=== PATIENT | male | born 1990 | race Caucasian/White ===

== ENCOUNTER 2023-10-22 14:14 | Outpatient (AMB) | payer OTHER, SELFPAY ==
--- NOTE | 2023-10-22 14:24 | A.OFFVIS_ITS ---
Vital Signs 10/22/23 14:31 Height 5 ft 8 in Weight 172 lb BMI 26.1 BP 124/66 Blood Pressure Location Lt brachial Position Sitting Pulse 88 Intake Visit Reasons: cholecystitis Intake Note: Patient is seen in office for evaluation and treatment of cholecystitis. 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 He reports multiple foods produce the nausea and vomiting especially acid foods. The pain is mainly in the epigastrium and right upper quadrant. He is surviving basically on bread and water. He has been on anti acid medications without significant improvement in his symptoms. He reports normal bowel movements without bleeding. Workup with ultrasound of the abdomen revealed multiple gallstones within the gall bladder. Patient presents to discuss cholecystectomy. [facility] Surgical History Hx of appendectomy Social History Alcohol intake: never Patient Tobacco Use Status: Former Tobacco user Review of Systems Const All systems reviewed & are unremarkable except as noted in HPI and below GI Reports abdominal pain, Reports nausea and Reports vomiting Physical Exam Vital Signs: Last Vital Signs Pulse 88 10/22/23 14:31 BP 124/66 10/22/23 14:31 BMI result Body Mass Index 26.1 Const General: cooperative and no acute distress Nutritional Appearance: well nourished Orientation/consciousness: patient oriented x3 Limitations: no limitations HEENT Head: Yes normocephalic and Yes atraumatic Ears: hearing grossly normal bilaterally Resp Effort & Inspection: normal respiratory effort, no audible wheezes, no cough and no respiratory distress Cardio Jugular venous distension: no JVD GI Inspection: Yes normal to inspection Palpation (GI): Soft to palpation and Tenderness to palpation present (GI) in the epigastrum, in the RUQ and Macias's sign positive Percussion: Yes normal to percussion Auscultation: normal bowel sounds Skin Other: Warm, dry, no rash Neuro General: patient oriented x3 Extrem General: Yes no clubbing, cyanosis or edema Assessment & Plan Assessment & Plan (1) Cholecystitis, acute with cholelithiasis: Code(s): K80.00 - Calculus of gallbladder with acute cholecystitis without obstruction Category: Medical Qualifiers: Biliary obstruction: without biliary obstruction Qualified Code(s): K80.00 - Calculus of gallbladder with acute cholecystitis without obstruction Plan 33-year-old male patient presenting with complaints of abdominal pain in the right upper quadrant and epigastrium with associated nausea and vomiting. Patient has difficulty eating multiple foods and feels he is losing weight because of this. Anti ulcer treatments have not helped his symptoms. He presents today to discuss laparoscopic or possible open cholecystectomy. Review of an ultrasound of the abdomen revealed multiple gallstones within the gallbladder. It is difficult to know if cholecystectomy will relieve all his symptoms given his complex history. His gallbladder clearly is abnormal and may help to some degree. I reviewed the risks, alternatives and benefits of laparoscopic cholecystectomy and he was subsequently consented to a laparoscopic or possible open cholecystectomy. He will be scheduled at his earliest convenience. Coding Level of Care Code New Pt Level 4 (77148) Diagnoses Calculus of gallbladder with acute cholecystitis without obstruction K80.00 Biliary obstruction: without biliary obstruction
[2023-10-22 14:31] VITALS: BP 124/66; PULSE 88; BMI 26.1
== END 2023-10-22 15:26 | disposition home or self-care (01) ==
PROVIDERS: PCP Internal Medicine; Visit Provider Surgery
DX: K80.00 Calculus of gallbladder with acute cholecystitis without obstruction (principal)
CPT/HCPCS: 99204

== ENCOUNTER → 2023-10-22 14:14 | Outpatient (BNVA) | payer OTHER, SELFPAY | PROVIDERS: PCP Internal Medicine; Visit Provider Surgery | DX: K80.00 Calculus of gallbladder with acute cholecystitis without obstruction (principal) | CPT/HCPCS: 99202 ==

== ENCOUNTER 2023-11-06 10:50 | Day surgery (SDC) | payer OTHER, SELFPAY ==
[2023-11-06] VITALS (8 sets, daily range): BP systolic 118–147; BP diastolic 64–86; PULSE 67–86; RESP 12–18; TEMP 36.4–36.6; O2SAT 95–100; BMI 25.7
[2023-11-06] MEDS: Lactated Ringers 1,000 ML 100 ML IVCONT (11:57)
--- NOTE | 2023-11-06 12:41 | MHC.SHP ---
Pre-Procedural Eval Section A - 24 Hr Update-Section A only Date of Service: 11/06/23 The patient is an INPATIENT: No Changes since office visit: Yes Patient answered all questions; No Cold of Flu in the past 2 weeks, No New Medical Problems and No Changes in Medication The patient has been examined within 24 hours of the surgical procedure. The History & Physical has been completed within 30 days and I have reviewed it.: Yes Section B - Complete if H&P > 30 days Chief Complaint: Calculus of gallbladder with acute cholecystitis Allergies: Allergies Allergy/AdvReac Type Severity Reaction Status Date / Time No Known Allergies Allergy Verified 11/05/23 10:04 Plan Diagnosis/Plan: Unchanged I have reviewed the history and physical and performed a pertinent physical examination on my patient. No changes have occurred unless specified. Time Spent With Patient Time: Total time managing care of this patient today ____ minutes.
--- NOTE | 2023-11-06 14:03 | HO.ANESPROP2 ---
HPI - Anesthesia Eval Consult details Narrative: 33yo male patient for Laparoscopic Cholecystectomy, possible open PMFSH Active Problems Active Problems: All Active Problems (Updated 10/22/23 @ 15:02 by Daniel Norwood MD) Cholecystitis, acute with cholelithiasis (Acute) Family History Family history of problems with anesthesia: No Surgical History Surgical History Hx of appendectomy History of Problems with Anesthesia: No Social History Social History Alcohol intake: never Patient Tobacco Use Status: Former Tobacco user Are you DNR?: No Advance Directives: No Advance Directives Information Provided: Yes Meds Allergies Allergy/AdvReac Type Severity Reaction Status Date / Time No Known Allergies Allergy Verified 11/05/23 10:04 Active Medications: Current Medications Lactated Ringer's (Lr) 1,000 mls @ 50 mls/hr IVCONT .Q20H KEYANNA Lactated Ringer's (Lr) 1,000 mls @ 100 mls/hr IVCONT .Q10H KEYANNA Last Admin: 11/06/23 11:57 Dose: 100 mls/hr Home Medications ?Medication ?Instructions ?Recorded ?Confirmed ?Last Taken ?Type No Known Home Meds 11/06/23 11/06/23 Unknown History Exam Height,Weight and Vital Signs: Height 5 ft 10 in Weight 81.193 kg Last Vital Signs Temp 97.9 F 11/06/23 11:35 Pulse 86 11/06/23 11:35 Resp 18 11/06/23 11:35 BP 147/86 H 11/06/23 11:35 Pulse Ox 100 11/06/23 11:35 O2 Del Method Room Air 11/06/23 11:35 Airway Mallampati Class: II TM Dist: >3cm Neck ROM: Full (Neck sore but FROM) Loose/Missing/Broken Teeth: No (Denies broken, loose, missing teeth) Heart: RRR Lungs: CTAB Assessment and Plan Assessment Anesthesia Assessment: Anesthesia Plan Discussed and Chart Reviewed Final Anesthetic Review Family History of Problems with Anesthesia: No History of Problems with Anesthesia: No NPO: Yes ASA Class: II Final Preanesthetic Review: No Changes in Pt Med Stat, Meds/Allgs Chart Reviewed, Consent Obtained/Reviewed and Anes Risks/Benef Reviewed Patient Risk: Intermediate Procedure Risk: Intermediate Assessment/Block/Sedation in SS: Assess/Block/Sedation-SS Anesthetic Plan Anesthetic Plan: GA Disposition: Standard PACU
--- NOTE | 2023-11-06 14:35 | P.OP_ITS ---
Operative Note Operative Note Date of Service: 11/06/23 Narrative: Preoperative diagnosis: Biliary colic, cholelithiasis Postoperative diagnosis: Same Procedure: Laparoscopic cholecystectomy Surgeon: Daniel Norwood MD Silk Presser: DURAN Amaya Anesthesia: General endotracheal Indications for procedure: 33-year-old male patient presenting with complaints of abdominal pain in the right upper quadrant found to have multiple gallstones within the gallbladder. Presents today for laparoscopic cholecystectomy. Operative findings: Chronically inflamed gallbladder Specimen: gallbladder Estimated blood loss: 10 mL. Complications: None Procedure details: Patient was brought to the OR and placed in a supine position. After administering general anesthesia the patient's abdomen was prepped with ChloraPrep and draped in a sterile fashion. A surgical time-out was called the consent confirmed. Patient received preoperative antibiotics and Venodyne boots were in place. Local anesthesia consisting of 0.5% Sensorcaine without epinephrine was infiltrated in a periumbilical region. A 5 mm incision was made above the umbilicus in a transverse fashion. The Veress needle was then inserted while elevating abdominal cavity with towel clips. After positive drop test the abdomen was insufflated to a pressure of 15 mm of mercury. The Veress needle was then removed and a 5 mm trocar inserted. The camera was inserted in the abdomen explored. A 12 mm trocar was then placed in the epigastrium. Two 5 mm trocars placed in the right upper quadrant by the interior design assistant. The patient was placed in reverse Trendelenburg positioning and rotated to the left. The gallbladder was grasped with the fundus and retracted cephalad by the interior design assistant. The infundibulum was then grasped and retracted away from the liver bed, also by the interior design assistant. The Dolphin dissected was then used by the surgeon to dissect the peritoneum off the infundibulum to reveal the junction with the cystic duct. Cystic artery was noted slightly medial and posterior to the cystic duct. After obtaining a critical view the cystic duct was doubly clipped and divided. The cystic artery was then doubly clipped and divided. The gallbladder was then dissected off the liver bed using electrocautery with an L hook. Hemostasis was assured all times using the electrocautery. When the gallbladder is completely dissected off the liver bed was placed in an Endo-Catch bag and brought out through the epigastric incision. The gallbladder was sent to pathology for further examination. The abdomen was then re-examined. The liver bed was irrigated and suctioned dry. No bleeding or bile leak could be identified. CO2 was then evacuated and all trocars removed. Fascia was closed at the epigastric incision using a [id number] 0 Polysorb suture. Skin was closed in all incisions using a subcuticular 4 0 Polysorb suture by both the surgeon and interior design assistant. Sterile dressings consisting of Steri-Strips, 2 x 2 gauze, and Tegaderm were then applied. The patient tolerated the procedure well. Sponge instrument and needle counts reported as correct. The patient was transferred to PACU in stable condition.
[2023-11-06] MEDS: oxyCODONE HCl Immed Release 5 MG TABLET PO (15:04)
== END 2023-11-06 16:07 | disposition home or self-care (01) ==
PROVIDERS: PCP Internal Medicine; Visit Provider Surgery
PROC: 0FT44ZZ Resection of Gallbladder, Percutaneous Endoscopic Approach (ICD-10-PCS; CPT 47562; principal; 2023-11-06 12:40)
DX: K80.00 Calculus of gallbladder with acute cholecystitis without obstruction (principal)
CPT/HCPCS: 47562; 88304; J1100; J2250; J2405; J2704; J2795; J3010

== ENCOUNTER → 2023-11-06 10:50 | Outpatient (BNV) | payer OTHER, SELFPAY | PROVIDERS: PCP Internal Medicine; Visit Provider Surgery | DX: K80.20 Calculus of gallbladder without cholecystitis without obstruction (principal); K80.51 Calculus of bile duct without cholangitis or cholecystitis with obstruction | CPT/HCPCS: 47562 ==

== ENCOUNTER 2023-11-15 10:51 | Outpatient (AMB) | payer OTHER, SELFPAY ==
--- NOTE | 2023-11-15 10:52 | MHC.OFFVIS ---
Vital Signs 11/15/23 10:56 Weight 173 lb Intake Visit Reasons: S/P lap arturo Intake Note: This patient presents for a post-op assessment status post laparoscopic cholecystectomy. Patient c/o; reports tenderness. Technology Officer Required: No Accompanied by: Self / Same As Patient Allergies No Known Allergies Allergy (Verified 11/15/23 10:57) HPI Comments Details: 33-year-old male patient returning 1 week following laparoscopic cholecystectomy. Reports some soreness in the epigastric incision but generally feels well. He has been eating without nausea or vomiting. He reports eating ribs yesterday for dinner and tolerated this well. He also reports lifting a vacuum shoe cleaner. He was cautioned to avoid lifting greater than 10 lb for another week. [facility] Surgical History Hx laparoscopic cholecystectomy (11/06/23) Hx of appendectomy Social History Alcohol intake: never Patient Tobacco Use Status: Former Tobacco user Physical Exam Const General: no acute distress Nutritional Appearance: well nourished Resp Effort & Inspection: normal respiratory effort GI Other: Soft, nondistended, nontender. Well-healed trocar incisions without evidence of infection or hernia. Assessment & Plan Assessment & Plan (1) Cholecystitis, acute with cholelithiasis: Code(s): K80.00 - Calculus of gallbladder with acute cholecystitis without obstruction Category: Medical Qualifiers: Biliary obstruction: without biliary obstruction Qualified Code(s): K80.00 - Calculus of gallbladder with acute cholecystitis without obstruction Plan 33-year-old male patient status post laparoscopic cholecystectomy returning for postop visit. His wounds are clean and intact without evidence of infection or hernia. He should continue to avoid lifting greater than 10 lb for the next week and avoid fatty/fried foods. He should follow up as needed. Coding Level of Care Code Global (93566) Diagnoses Calculus of gallbladder with acute cholecystitis without obstruction K80.00 Biliary obstruction: without biliary obstruction
== END 2023-11-15 10:59 | disposition home or self-care (01) ==
PROVIDERS: PCP Internal Medicine; Visit Provider Surgery
DX: K80.00 Calculus of gallbladder with acute cholecystitis without obstruction (principal)
CPT/HCPCS: 99024

== ENCOUNTER → 2023-11-15 10:51 | Outpatient (BNVA) | payer OTHER, SELFPAY | PROVIDERS: PCP Internal Medicine; Visit Provider Surgery | DX: K80.00 Calculus of gallbladder with acute cholecystitis without obstruction (principal); Z90.49 Acquired absence of other specified parts of digestive tract | CPT/HCPCS: 99212 ==

== ENCOUNTER 2024-03-19 10:09 | Outpatient (REF) | payer OTHER, SELFPAY ==
[2024-03-19 10:33] LABS: MANUAL DIFF FLAG NO
[2024-03-19 11:00] LABS: Basophils Absolute Auto 0.1 X10*3/uL (0.0-0.2); Eosinophils Absolute Auto 0.2 X10*3/uL (0.0-0.4); Eosinophils Percent Auto 2.1 % (0-4); Hematocrit 45.5 % (42.0-52.0); Hemoglobin 15.2 g/dl (14.0-18.0); Imm Gran Abs Auto 0.11 X10*3/uL (0.00-0.03); Lymphocytes Absolute Auto 4.1 X10*3/uL (1.2-4.9); Lymphocytes Percent Auto 36.6 % (20-40); Mean Corpuscular HGB Conc 33.4 g/dl (31.0-36.0); Mean Corpuscular Hemoglobin 29.7 pg (27.0-33.0); Mean Platelet Volume 9.7 fL (9.4-12.4); Monocytes Absolute Auto 0.8 X10*3/uL (0.1-1.2); Monocytes Percent Auto 7.1 % (2-11); Neutrophils Absolute Auto 5.9 x10*3/uL (2.0-8.3); Neutrophils Percent Auto 52.2 % (45-73); Platelet Count 368 X10*3/uL (160-400); Red Blood Count 5.11 X10*6/uL (4.60-5.80); Red Cell Distribution Width 12.8 % (11.0-16.0); White Blood Count 11.3 X10*3/uL (4.8-10.8)
== END 2024-03-19 10:10 | disposition home or self-care (01) ==
LOC: HO.LAB 10:09
PROVIDERS: PCP Internal Medicine; Visit Provider Internal Medicine
DX: R53.83 Other fatigue (principal)
CPT/HCPCS: 36415; 85025